=== PATIENT | male | born 1960 | race African-American/Black ===

== ENCOUNTER 2020-12-27 15:14 | Outpatient (CLI) | payer OTHER | END 2020-12-27 15:15 | disposition critical access hospital (66) | LOC: EMS 15:14 | PROVIDERS: ATTEND Emergency Medicine | DX: R10.31 Right lower quadrant pain (principal) | CPT/HCPCS: A0425; A0427 ==

== ENCOUNTER 2020-12-27 15:42 | Emergency (ER) | payer OTHER ==
--- NOTE | 2020-12-27 15:51 | ED Physician Documentation ---
PD HPI ABD PAIN - Stated complaint Stated Complaint: ABD PX - History obtained from History obtained from: Patient, EMS - Additional information Additional information: 60-year-old gentleman with some chronic digestive issues but also history of renal colic x2 presents with abrupt onset severe right-sided abdominal and flank pain starting about an hour ago after eating. He did get some relief after getting fentanyl on the way here. He denies nausea. The pain is reminiscent of prior renal colic. He never needed an intervention for that. He was noted to be quite hypertensive on the way here. Pain also radiates towards the groin. He declines pain medication on initial evaluation. Review of Systems Ten Systems: 10 systems reviewed and negative Constitutional: denies: Fever, Chills Nose: reports: Reviewed and negative Throat: reports: Reviewed and negative PD PAST MEDICAL HISTORY - Past Medical History Past Medical History: Yes GI: Other : Kidney stones - Present Medications Home Medications: Ambulatory Orders Medication Instructions Recorded Confirmed Atenolol [Tenormin] 25 mg PO DAILY 12/27/20 12/27/20 Doxycycline Hyclate [Doryx] 25 mg PO DAILY 12/27/20 12/27/20 Hydrochlorothiazide 25 mg PO DAILY 12/27/20 12/27/20 Ibuprofen [Motrin] 800 mg PO Q8H PRN #10 tablet 12/27/20 Oxycodone HCl/Acetaminophen 1 - 2 each PO Q6H PRN #14 tablet 12/27/20 [Percocet 5-325 mg Tablet] Simvastatin [Zocor] 40 mg PO DAILY 12/27/20 12/27/20 Tamsulosin [Flomax] 0.4 mg PO DAILY #14 cap 12/27/20 - Allergies Allergies/Adverse Reactions: Allergies Allergy/AdvReac Type Severity Reaction Status Date / Time No Known Drug Allergies Allergy Verified 12/27/20 16:14 - Living Situation Living Arrangement: reports: At home - Family History Family history: reports: Non contributory PD ED PE NORMAL - Vitals Vital signs reviewed: Yes - General General: Alert and oriented X 3, No acute distress - HEENT HEENT: PERRL, EOMI - Neck Neck: Supple, no meningeal sign, No bony TTP - Cardiac Cardiac: RRR, No murmur - Respiratory Respiratory: No respiratory distress, Clear bilaterally - Abdomen Abdomen: Soft, Other (Mild diffuse R abd TTP and mild R CVAT) - Derm Derm: Normal color, Warm and dry - Extremities Extremities: No edema, No calf tenderness / cord - Neuro Neuro: Alert and oriented X 3, Normal speech Results - Vitals Vitals: Vital Signs - 24 hr 12/27/20 12/27/20 12/27/20 15:43 16:15 16:53 Temperature 37 C Heart Rate 48 L 48 L 49 L Respiratory 16 18 22 Rate Blood Pressure 202/100 H 172/106 H 150/82 H O2 Saturation 96 98 12/27/20 12/27/20 12/27/20 17:03 17:42 18:27 Temperature Heart Rate 86 61 52 L Respiratory 16 16 Rate Blood Pressure 155/70 H 160/76 H 148/71 H O2 Saturation 94 98 Oxygen O2 Source Room air - Labs Labs: Laboratory Tests 12/27/20 12/27/20 12/27/20 16:00 16:00 16:45 WBC 5.7 RBC 4.52 L Hgb 14.3 Hct 41.9 L MCV 92.7 MCH 31.6 H MCHC 34.1 RDW 12.7 Plt Count 257 MPV 9.3 Neut # (Auto) 2.8 Lymph # (Auto) 2.2 [place] # (Auto) 0.6 Eos # (Auto) 0.1 Baso # (Auto) 0.0 Absolute Nucleated RBC 0.00 Nucleated RBC % 0.0 Sodium 137 Potassium 3.6 Chloride 99 L Carbon Dioxide 28 Anion Gap 10.0 BUN 21 H Creatinine 0.9 Estimated GFR (MDRD) 104 Glucose 107 H Calcium 9.7 Total Bilirubin 0.8 AST 25 ALT 29 Alkaline Phosphatase 75 Total Protein 7.3 Albumin 4.6 Globulin 2.7 Albumin/Globulin Ratio 1.7 Lipase 31 Urine Color YELLOW Urine Clarity HAZY Urine pH 6.0 Ur Specific [place] 1.025 Urine Protein NEGATIVE Urine Glucose (UA) NEGATIVE Urine Ketones NEGATIVE Urine Occult Blood LARGE H Urine Nitrite NEGATIVE Urine Bilirubin NEGATIVE Urine Urobilinogen 0.2 (NORMAL) Ur Leukocyte Esterase NEGATIVE Urine RBC 0-5 Urine WBC 0-3 Ur Squamous Epith Cells RARE Squamous Urine Bacteria Few Ur Microscopic Review INDICATED Urine Culture Comments NOT INDICATED - Rads (name of study) CT A/P Radiology: EMP read contemporaneously (Gastric distention, periportal edema in the liver, 1 mm right distal ureteral stone with mild hydronephrosis) PD MEDICAL DECISION MAKING - ED course ED course: 60-year-old gentleman presents with right-sided renal colic, small stone in the ureter was found on CT imaging. His pain was managed with medications here and counseled as to the diagnosis. Departure - Departure Disposition: 01 Home, Self Care Clinical Impression: Renal colic Condition: Stable Record reviewed to determine appropriate education?: Yes Instructions: ED Stone Renal W Colic Prescriptions: Tamsulosin [Flomax] 0.4 mg PO DAILY #14 cap Ibuprofen [Motrin] 800 mg PO Q8H PRN #10 tablet PRN Reason: PAIN &/OR FEVER Oxycodone HCl/Acetaminophen [Percocet 5-325 mg Tablet] 1 - 2 each PO Q6H PRN #14 tablet PRN Reason: pain Comments: Call your doctor to arrange a follow-up appointment, make the next available appointment. In the interim, return anytime if worse or if new symptoms develop. Discharge Date/Time: 12/27/20 18:39
[2020-12-27] MEDS ORDERED: KETOROLAC 30 MG/ML VIAL IVP STA (16:02)
[2020-12-27] MEDS ORDERED: HYDROmorphone 1 MG/ML CARPUJECT IVP STA ×2 (16:02→16:56)
[2020-12-27 16:06] LABS: BASOPHILS % (AUTO) 0.5 %; EOSINOPHILS # (AUTO) 0.1 10^3/uL (0.0-0.7); EOSINOPHILS % (AUTO) 1.9 %; HCT - HEMATOCRIT 41.9 % (42.0-52.0); HGB - HEMOGLOBIN 14.3 g/dL (14.0-18.0); LYMPHOCYTES # (AUTO) 2.2 10^3/uL (1.5-3.5); LYMPHOCYTES % (AUTO) 38.9 %; MEAN CORPUSCULAR HEMOGLOBIN 31.6 pg (27.0-31.0); MEAN CORPUSCULAR HGB CONC 34.1 g/dL (32.0-36.0); MEAN CORPUSCULAR VOLUME 92.7 fL (80.0-94.0); MEAN PLATELET VOLUME 9.3 fL (7.4-11.4); MONOCYTES # (AUTO) 0.6 10^3/uL (0.0-1.0); MONOCYTES % (AUTO) 10.2 %; NEUTROPHILS # (AUTO) 2.8 10^3/uL (1.5-6.6); NEUTROPHILS % (AUTO) 48.3 %; PLT - PLATELET COUNT 257 10^3/uL (130-450); RED BLOOD COUNT 4.52 10^6/uL (4.70-6.10); RED CELL DISTRIBUTION WIDTH 12.7 % (12.0-15.0); WHITE BLOOD COUNT 5.7 x10^3/uL (4.8-10.8)
[2020-12-27] MEDS ORDERED: IOVERSOL 320 100 ML VIAL IVP ONE ×2 (16:08→16:39)
[2020-12-27 16:18] LABS: ALBUMIN 4.6 g/dL (3.2-5.5); ALBUMIN/GLOBULIN RATIO 1.7 (1.0-2.2); BILIRUBIN,TOTAL 0.8 mg/dL (0.2-1.0); CALCIUM 9.7 mg/dL (8.5-10.3); CREATININE 0.9 mg/dL (0.6-1.2); POTASSIUM 3.6 mmol/L (3.5-5.0); TOTAL PROTEIN 7.3 g/dL (6.7-8.2)
[2020-12-27 16:55] LABS: BILIRUBIN,URINE NEGATIVE (NEGATIVE); GLUCOSE, URINE (UA) NEGATIVE (NEGATIVE); KETONES,URINE (UA) NEGATIVE (NEGATIVE); LEUKOCYTE ESTERASE, URINE NEGATIVE (NEGATIVE); NITRITE,URINE NEGATIVE (NEGATIVE); OCCULT BLOOD,URINE LARGE (NEGATIVE); PROTEIN,URINE NEGATIVE (NEGATIVE); UROBILINOGEN,URINE 0.2 (NORMAL) E.U./dL (NORMAL)
--- NOTE | 2020-12-27 16:55 | CT Report ---
PROCEDURE: Abdomen/Pelvis W INDICATIONS: R flank/abd pain, IV only CONTRAST: IV CONTRAST: Optiray 320 ml: 100 PO CONTRAST: *NO PO CONTRAST TECHNIQUE: After the administration of IV contrast, 5 mm thick sections acquired from the diaphragms to the symp hysis. 5 mm thick coronal and sagittal reformats were acquired. For radiation dose reduction, the f ollowing was used: automated exposure control, adjustment of mA and/or kV according to patient size. COMPARISON: None. FINDINGS: Image quality: Excellent. ABDOMEN: Lung bases: Lung bases are clear. Heart size is normal. Solid organs: Liver and spleen are normal in size and enhancement. There is periportal edema in the liver, a nonspecific finding. Gallbladder is distended with a thin wall. There is no fluid around the gallbladder. There is no inflammatory change around the gallbladder. Biliary system is non dilated. Pancreas enhances normally. No adrenal nodules. There is a 1 mm stone obstructing the distal right ureter at the level of the acetabulum, a short distance above the UV junction. Reference image 75/4 and image 33/7. This results in mild right hydroureter minimal right hydronephrosis, and a delayed ri ght nephrogram. Peritoneum and bowel: The stomach is distended. Bowel loops demonstrate normal wall thickness and caliber. No free fluid or air. Nodes and vessels: No retroperitoneal or mesenteric adenopathy by size criteria. Aorta and inferior vena cava are normal in size. Atherosclerotic calcifications involving the aorta and iliacs. Miscellaneous: No ventral hernias. PELVIS: Genitourinary: Bladder wall thickness is normal. Miscellaneous: No inguinal hernias or adenopathy. Bones: No suspicious bony lesions. No vertebral body compression fractures. IMPRESSION: 1. A 1 mm stone obstructs the distal right ureter just above the ureterovesical junction resulting in minimal right hydronephrosis and delayed right nephrogram. 2. Gastric distention. 3. Periportal edema in the liver, nonspecific finding. Reviewed by: Daniel Baldwin MD on 12/27/2020 3:54 PM [facility] Approved by: Daniel Baldwin MD on 12/27/2020 3:54 PM [place] Station ID: [id number]
[2020-12-27 16:58] LABS: CLARITY,URINE HAZY (CLEAR)
[2020-12-27 17:15] LABS: BACTERIA,URINE Few /HPF (None Seen); RBC,URINE 0-5 /HPF (0-5); SQUAMOUS EPITHELIAL CELL,UR RARE Squamous (<= Few); WBC,URINE 0-3 /HPF (0-3)
[2020-12-27] MEDS ORDERED: TAMSULOSIN 0.4 MG CAPSULE PO STA (17:21)
[2020-12-27] MEDS ORDERED: oxyCODONE/ACET 5/325 Prepack 4 PO STA (18:09)
[2020-12-27 18:28] VITALS: BP 148/71
[2020-12-27] MEDS ORDERED: HYDROmorphone 2 MG/ML VIAL IM STA (18:41)
== END 2020-12-27 18:39 | disposition home or self-care (01) ==
LOC: ED 15:42
DX: N13.2 Hydronephrosis with renal and ureteral calculous obstruction (principal)
CPT/HCPCS: 36415; 74177; 80053; 81001; 83690; 85025; 96374; 96375; 96376; 99284; A9270; J1170; Q9967; 81003; 87086; 87491; 87591; 87661

== ENCOUNTER 2020-12-28 10:15 | Outpatient (CLI) | payer OTHER | END 2020-12-28 10:16 | disposition critical access hospital (66) | LOC: EMS 10:15 | PROVIDERS: ATTEND Emergency Medicine | DX: R10.9 Unspecified abdominal pain (principal); R11.2 Nausea with vomiting, unspecified | CPT/HCPCS: A0425; A0427 ==

== ENCOUNTER 2020-12-28 10:42 | Emergency (ER) | payer OTHER ==
[2020-12-28] MEDS ORDERED: ONDANSETRON 4 MG/2 ML VIAL IVP STA (10:51)
[2020-12-28] MEDS ORDERED: SODIUM CHLORIDE 0.9% 1,000 ML IV STA (10:51)
[2020-12-28 11:26] LABS: BASOPHILS % (AUTO) 0.3 %; EOSINOPHILS % (AUTO) 0.3 %; HCT - HEMATOCRIT 41.8 % (42.0-52.0); HGB - HEMOGLOBIN 14.4 g/dL (14.0-18.0); LYMPHOCYTES # (AUTO) 1.3 10^3/uL (1.5-3.5); MEAN CORPUSCULAR HEMOGLOBIN 31.7 pg (27.0-31.0); MEAN CORPUSCULAR HGB CONC 34.4 g/dL (32.0-36.0); MEAN CORPUSCULAR VOLUME 92.1 fL (80.0-94.0); MEAN PLATELET VOLUME 9.1 fL (7.4-11.4); MONOCYTES # (AUTO) 0.7 10^3/uL (0.0-1.0); NEUTROPHILS # (AUTO) 7.1 10^3/uL (1.5-6.6); NEUTROPHILS % (AUTO) 77.2 %; PLT - PLATELET COUNT 253 10^3/uL (130-450); RED BLOOD COUNT 4.54 10^6/uL (4.70-6.10); RED CELL DISTRIBUTION WIDTH 12.8 % (12.0-15.0); WHITE BLOOD COUNT 9.1 x10^3/uL (4.8-10.8)
[2020-12-28] MEDS ORDERED: KETOROLAC 30 MG/ML VIAL IVP STA (11:39)
[2020-12-28] MEDS ORDERED: HYDROmorphone 0.5 MG/0.5 ML SYRINGE IVP STA (11:39)
[2020-12-28 11:40] LABS: ALBUMIN/GLOBULIN RATIO 1.5 (1.0-2.2); BILIRUBIN,TOTAL 0.8 mg/dL (0.2-1.0); CALCIUM 9.3 mg/dL (8.5-10.3); CREATININE 1.4 mg/dL (0.6-1.2); POTASSIUM 3.3 mmol/L (3.5-5.0); TOTAL PROTEIN 6.7 g/dL (6.7-8.2)
--- NOTE | 2020-12-28 12:26 | ED Physician Documentation ---
History of Present Illness - Stated complaint Stated Complaint: N/V - Chief complaint Chief Complaint: Abd Pain - History obtained from History obtained from: Patient - Additonal information Additional information: Patient returns emergency department after being seen yesterday and diagnosed with a kidney stone, for chief complaint of nausea vomiting and right flank pain overnight. Patient states that the pain is in about the same place it was yesterday. Review of his records reveals that he had a CT scan that revealed a 1 mm stone in his right ureter, but work-up was otherwise negative. The patient was discharged with oxycodone, which patient states is taken a little, though he is concerned about possible constipation, given his history of hemorrhoids and hemorrhoidectomy. He states that he vomited throughout the night and feels as though he got dehydrated. Patient states he had other kidney stones before, and that the symptoms seems to be lasting longer. He denies fevers or chills. No dysuria. No other complaints at this time. Review of Systems Ten Systems: 10 systems reviewed and negative Constitutional: reports: Reviewed and negative Eyes: reports: Reviewed and negative Ears: reports: Reviewed and negative Nose: reports: Reviewed and negative Throat: reports: Reviewed and negative Cardiac: reports: Reviewed and negative Respiratory: reports: Reviewed and negative GI: reports: Abdominal Pain, Nausea, Vomiting : reports: Reviewed and negative Skin: reports: Reviewed and negative Musculoskeletal: reports: Reviewed and negative Neurologic: reports: Reviewed and negative Psychiatric: reports: Reviewed and negative Endocrine: reports: Reviewed and negative Immunocompromised: reports: Reviewed and negative PD PAST MEDICAL HISTORY - Past Medical History Past Medical History: Yes Cardiovascular: Hypertension GI: Other : Kidney stones - Past Surgical History Past Surgical History: Yes - Present Medications Home Medications: Ambulatory Orders Medication Instructions Recorded Confirmed Atenolol [Tenormin] 25 mg PO DAILY 12/27/20 12/27/20 Doxycycline Hyclate [Doryx] 25 mg PO DAILY 12/27/20 12/27/20 Hydrochlorothiazide 25 mg PO DAILY 12/27/20 12/27/20 Ibuprofen [Motrin] 800 mg PO Q8H PRN #10 tablet 12/27/20 Oxycodone HCl/Acetaminophen 1 - 2 each PO Q6H PRN #14 tablet 12/27/20 [Percocet 5-325 mg Tablet] Simvastatin [Zocor] 40 mg PO DAILY 12/27/20 12/27/20 Tamsulosin [Flomax] 0.4 mg PO DAILY #14 cap 12/27/20 Ondansetron Odt [Zofran] 4 mg TL Q6H PRN #10 tablet 12/28/20 - Allergies Allergies/Adverse Reactions: Allergies Allergy/AdvReac Type Severity Reaction Status Date / Time No Known Drug Allergies Allergy Verified 12/27/20 16:14 - Social History Does the pt smoke?: No Smoking Status: Never smoker Does the pt drink ETOH?: Yes Does the pt have substance abuse?: Yes Substance Use and Type: Marijuana - Immunizations Immunizations are current?: Yes - POLST Patient has POLST: No PD ED PE NORMAL - Vitals Vital signs reviewed: Yes - General General: Alert and oriented X 3, No acute distress - HEENT HEENT: Atraumatic, PERRL, EOMI, Moist mucous membranes - Neck Neck: Supple, no meningeal sign - Cardiac Cardiac: RRR, No murmur, Strong equal pulses - Respiratory Respiratory: No respiratory distress, Clear bilaterally - Abdomen Abdomen: Soft, Non distended, Other (Moderate left flank tenderness, no rebound or guarding) - Derm Derm: Warm and dry - Extremities Extremities: No deformity - Neuro Neuro: Alert and oriented X 3 - Psych Psych: Normal mood, Normal affect Results - Vitals Vitals: Vital Signs - 24 hr 12/28/20 12/28/20 12/28/20 10:42 10:53 11:56 Temperature 37.0 C Heart Rate 53 L 57 L 53 L Respiratory 18 18 16 Rate Blood Pressure 143/120 H 145/97 H 161/83 H O2 Saturation 94 99 100 Oxygen O2 Source Room air - Labs Labs: Laboratory Tests 12/28/20 12/28/20 11:19 11:19 WBC 9.1 RBC 4.54 L Hgb 14.4 Hct 41.8 L MCV 92.1 MCH 31.7 H MCHC 34.4 RDW 12.8 Plt Count 253 MPV 9.1 Neut # (Auto) 7.1 H Lymph # (Auto) 1.3 L [place] # (Auto) 0.7 Eos # (Auto) 0.0 Baso # (Auto) 0.0 Absolute Nucleated RBC 0.00 Nucleated RBC % 0.0 Sodium 139 Potassium 3.3 L Chloride 98 L Carbon Dioxide 28 Anion Gap 13.0 BUN 22 H Creatinine 1.4 H Estimated GFR (MDRD) 62 L Glucose 119 H Calcium 9.3 Total Bilirubin 0.8 AST 23 ALT 25 Alkaline Phosphatase 62 Total Protein 6.7 Albumin 4.0 Globulin 2.7 Albumin/Globulin Ratio 1.5 Lipase 23 PD MEDICAL DECISION MAKING - ED course Complexity details: reviewed results, re-evaluated patient, considered differential, d/w patient ED course: The patient overall appeared fairly well, but seem to be still having symptoms, and as such, I did work him up with laboratory studies. Labs were unremarkable. The patient was given a liter of point and normal saline as well as a dose of Zofran. He requested that we minimize the likelihood of constipation from her treatments here in the ED, so I gave him a dose of Toradol and half a milligram of Dilaudid. This did seem to improve the patient's symptoms. I discussed with him that he does have a fairly small stone, though the stone may be angular and if it is attempting passage to the UVJ, but certainly cause some pain which would lead to nausea and vomiting. Work-up yesterday and today has not revealed any cause for further concern. The advised the patient to drink plenty of fluids and follow-up with his primary care physician and urology if needed. We have discussed the usual indications for return. Departure - Departure Disposition: 01 Home, Self Care Clinical Impression: Kidney stone on right side Vomiting Qualifiers: Vomiting type: bilious vomiting Nausea presence: with nausea Qualified Code(s): R11.14 - Bilious vomiting Condition: Stable Instructions: ED Nausea Vomiting, ED Stone Renal W Colic Prescriptions: Ondansetron Odt [Zofran] 4 mg TL Q6H PRN #10 tablet PRN Reason: Nausea / Vomiting Comments: Your labs look good today. Your kidney CT scan yesterday showed a kidney stone that is very close to passing into your bladder. The size of the stone is very passable and most likely, this will occur within the next couple of days at the latest. Please drink plenty of fluids to help encourage passage of the stone. You may take the pain medication you were prescribed yesterday although this will increase your likelihood of constipation. If you need pain control but want to minimize the constipation, you may try cutting a pill in half and see if this gives you enough relief without creating some much constipation. You may take the oral dissolving Zofran for nausea, as needed.
[2020-12-28 12:50] VITALS: BP 135/79
== END 2020-12-28 13:02 | disposition home or self-care (01) ==
LOC: EDUNIT# → ED 10:42
DX: N20.0 Calculus of kidney (principal); R11.2 Nausea with vomiting, unspecified; Z87.442 Personal history of urinary calculi
CPT/HCPCS: 36415; 80053; 83690; 85025; 96361; 96374; 96375; 99283; J1170

== ENCOUNTER 2021-02-21 11:44 | Emergency (ER) | payer OTHER ==
--- OUTSIDE RECORDS SUMMARY | 2021-02-21 11:47 | EXTERNAL MEDICAL SUMMARY RPT | Continuity of Care Document ---
:1960 Demographics Phone Unavailable Preferred Language Unknown Marital Status Unknown Taoist Affiliation Unknown Race Unknown Ethnic Group Unknown Author Organization [facility] Address [address] [place] [address] Phone Social History date description facility [phone]
--- OUTSIDE RECORDS SUMMARY | 2021-02-21 11:54 | EXTERNAL MEDICAL SUMMARY RPT | Continuity of Care Document ---
:1960 Demographics Phone Unavailable Preferred Language Unknown Marital Status Unknown Confucianism Affiliation Unknown Race Unknown Ethnic Group Unknown Author Organization [facility] Address [address] [place] [address] Phone Social History date description facility [phone]
[2021-02-21] MEDS ORDERED: KETOROLAC 60 MG/2 ML VIAL IM STA (13:04)
[2021-02-21] MEDS ORDERED: CHERRY SYRUP 10 ML UDC PO ONE (13:04)
[2021-02-21] MEDS ORDERED: DEXAMETHASONE 10 MG/ML VIAL PO STA (13:04)
--- NOTE | 2021-02-21 13:25 | ED Physician Documentation ---
PD HPI BACK PAIN - Stated complaint Stated Complaint: BODY PX - Chief complaint Chief Complaint: Ext Problem - History obtained from History obtained from: Patient - History of Present Illness Timing - onset: How many weeks ago (3) Timing - duration: Weeks (3) Timing - details: Gradual onset, Still present, Waxing and waning Location: Lower, Left Quality: Pain, Spasm, Sharp Associated symptoms: No: Fever, Weakness, Numbness, Incontinent of urine, Unable to urinate, Hematuria, Incontinent of stool Improves with: Rest, Position, Meds Worsened by: Movement Contributing factors: Other (over did it in the yard 3 weeks ago) Similar symptoms before: Diagnosis (cervical radiculopathy) Recently seen: Not recently seen - Additional information Additional information: 60-year-old male overdid it in his yard 3 weeks ago and developed some pain in his low back and this is now radiated to his left leg. He indicates that this has been going on for the past 3 weeks and today had an episode of pain that was so severe that he felt he was going to going to . He indicates he has pain going down the lateral aspect of his thigh across to the medial aspect and into his knee. He feels her maybe even some swelling to his knee for it feels like that. He denies any change in his bowel or bladder denies any numbness to his perineum he has not had fever. Review of Systems Constitutional: denies: Fever Nose: denies: Congestion Throat: denies: Sore throat Respiratory: denies: Cough GI: denies: Vomiting PD PAST MEDICAL HISTORY - Past Medical History Past Medical History: Yes Cardiovascular: Hypertension GI: Other : Kidney stones - Past Surgical History Past Surgical History: Yes - Present Medications Home Medications: Ambulatory Orders Medication Instructions Recorded Confirmed Atenolol [Tenormin] 25 mg PO DAILY 12/27/20 02/21/21 Doxycycline Hyclate [Doryx] 25 mg PO DAILY 12/27/20 02/21/21 Hydrochlorothiazide 25 mg PO DAILY 12/27/20 02/21/21 Simvastatin [Zocor] 40 mg PO DAILY 12/27/20 02/21/21 Cyclobenzaprine [Flexeril] 10 mg PO TID PRN #20 tablet 02/21/21 HYDROcod/ACETAM 5/325 [[place] 5/325] 1 - 2 tablet PO Q6H PRN #14 tablet 02/21/21 - Allergies Allergies/Adverse Reactions: Allergies Allergy/AdvReac Type Severity Reaction Status Date / Time No Known Drug Allergies Allergy Verified 02/21/21 12:03 - Social History Does the pt smoke?: No Smoking Status: Never smoker Does the pt drink ETOH?: Yes Does the pt have substance abuse?: Yes - Immunizations Immunizations are current?: Yes - POLST Patient has POLST: No PD ED PE NORMAL - Vitals Vital signs reviewed: Yes (Hypertensive mild) - General General: Alert and oriented X 3, No acute distress, Well developed/nourished - HEENT HEENT: Atraumatic, PERRL, EOMI - Respiratory Respiratory: No respiratory distress - Back Back: No CVA TTP, No spinal TTP, Other (There is paraspinous muscle spasm and tenderness more on the left than the right from the L1-L5 area. Pain extends into the sciatic notch) - Derm Derm: Normal color, Warm and dry, No rash - Extremities Extremities: No deformity, No edema - Neuro Neuro: Alert and oriented X 3, events specialist 2-12 intact, No motor deficit, No sensory deficit, Normal speech Eye Opening: Spontaneous Motor: Obeys Commands Verbal: Oriented GCS Score: 15 - Psych Psych: Normal mood, Normal affect Results - Vitals Vitals: Vital Signs - 24 hr 02/21/21 02/21/21 11:48 14:02 Temperature 36.3 C L Heart Rate 66 57 L Respiratory 18 16 Rate Blood Pressure 136/76 H 142/82 H O2 Saturation 100 97 Oxygen O2 Source Room air PD MEDICAL DECISION MAKING - ED course Complexity details: re-evaluated patient, considered differential, d/w patient ED course: 60-year-old male with acute sciatica is administered dexamethasone 10 mg and Toradol 60 mg IM we will place him on some [place] and Flexeril. The patient has had prior imaging recently within the past month demonstrating normal-appearing vasculature in the intra-abdominal area. The patient's history and examination are consistent with sciatica as a diagnosis. He is instructed on moderation in all health practices including alcohol intake cannabis intake length of time working. I have encouraged the patient adequately hydrated as well. Departure - Departure Disposition: 01 Home, Self Care Clinical Impression: Sciatica Qualifiers: Laterality: left Qualified Code(s): M54.32 - Sciatica, left side Condition: Stable Instructions: ED Sciatica Follow-Up: [facility] [Provider Group] Prescriptions: Cyclobenzaprine [Flexeril] 10 mg PO TID PRN #20 tablet PRN Reason: Spasms HYDROcod/ACETAM 5/325 [[place] 5/325] 1 - 2 tablet PO Q6H PRN #14 tablet PRN Reason: Pain Discharge Date/Time: 02/21/21 14:05
[2021-02-21 14:02] VITALS: BP 142/82
== END 2021-02-21 14:05 | disposition home or self-care (01) ==
LOC: ED 11:44
DX: M54.42 Lumbago with sciatica, left side (principal); I10 Essential (primary) hypertension
CPT/HCPCS: 96372; 99283; 99284; A9270

== ENCOUNTER 2021-02-22 08:00 | Outpatient (CLI) | payer OTHER ==
[2021-02-22 11:48] LABS: BASOPHILS % (AUTO) 0.2 %; EOSINOPHILS % (AUTO) 0.3 %; HCT - HEMATOCRIT 42.4 % (42.0-52.0); HGB - HEMOGLOBIN 14.6 g/dL (14.0-18.0); LYMPHOCYTES # (AUTO) 1.6 10^3/uL (1.5-3.5); LYMPHOCYTES % (AUTO) 14.2 %; MEAN CORPUSCULAR HEMOGLOBIN 31.6 pg (27.0-31.0); MEAN CORPUSCULAR HGB CONC 34.4 g/dL (32.0-36.0); MEAN CORPUSCULAR VOLUME 91.8 fL (80.0-94.0); MEAN PLATELET VOLUME 11.1 fL (7.4-11.4); MONOCYTES # (AUTO) 0.9 10^3/uL (0.0-1.0); MONOCYTES % (AUTO) 7.8 %; NEUTROPHILS # (AUTO) 8.8 10^3/uL (1.5-6.6); NEUTROPHILS % (AUTO) 77.1 %; PLT - PLATELET COUNT 253 10^3/uL (130-450); RED BLOOD COUNT 4.62 10^6/uL (4.70-6.10); RED CELL DISTRIBUTION WIDTH 12.8 % (12.0-15.0); WHITE BLOOD COUNT 11.4 x10^3/uL (4.8-10.8)
[2021-02-22 11:57] LABS: ALBUMIN 4.9 g/dL (3.2-5.5); ALBUMIN/GLOBULIN RATIO 1.8 (1.0-2.2); CALCIUM 10.6 mg/dL (8.5-10.3); CREATININE 0.8 mg/dL (0.6-1.2); TOTAL PROTEIN 7.6 g/dL (6.7-8.2)
== END 2021-02-22 23:59 | disposition home or self-care (01) ==
LOC: LAB.N 08:00
PROVIDERS: ATTEND Nurse Practitioner
DX: M79.606 Pain in leg, unspecified (principal); R10.9 Unspecified abdominal pain
CPT/HCPCS: 36415; 80053; 85025; 85379; 87086

== ENCOUNTER 2021-02-22 11:24 | Emergency (ER) | payer OTHER ==
--- OUTSIDE RECORDS SUMMARY | 2021-02-22 11:28 | EXTERNAL MEDICAL SUMMARY RPT | Continuity of Care Document ---
:1960 Demographics Phone Unavailable Preferred Language Unknown Marital Status Unknown Judaism Affiliation Unknown Race Unknown Ethnic Group Unknown Author Organization [facility] Address [address] [place] [phone] Phone Social History date description facility [phone]
--- OUTSIDE RECORDS SUMMARY | 2021-02-22 12:10 | EXTERNAL MEDICAL SUMMARY RPT | Continuity of Care Document ---
:1960 Demographics Phone Unavailable Preferred Language Unknown Marital Status Unknown Gnosticism Affiliation Unknown Race Unknown Ethnic Group Unknown Author Organization [facility] Address [address] [place] [address] Phone Social History date description facility [phone]
[2021-02-22] MEDS ORDERED: methocarbamoL 500 MG TABLET PO STA (12:23)
[2021-02-22 12:31] LABS: BILIRUBIN,URINE NEGATIVE (NEGATIVE); GLUCOSE, URINE (UA) NEGATIVE (NEGATIVE); KETONES,URINE (UA) NEGATIVE (NEGATIVE); LEUKOCYTE ESTERASE, URINE NEGATIVE (NEGATIVE); NITRITE,URINE NEGATIVE (NEGATIVE); OCCULT BLOOD,URINE TRACE-LYSE (NEGATIVE); PROTEIN,URINE NEGATIVE (NEGATIVE); UROBILINOGEN,URINE 0.2 (NORMAL) E.U./dL (NORMAL)
[2021-02-22 12:35] LABS: CLARITY,URINE CLEAR (CLEAR)
--- NOTE | 2021-02-22 12:39 | ED Physician Documentation ---
PD HPI BACK PAIN - Stated complaint Stated Complaint: FLANK PX - Chief complaint Chief Complaint: Back Pain - History obtained from History obtained from: Patient - History of Present Illness Timing - onset: How many weeks ago (3) Timing - duration: Weeks (3) Timing - details: Gradual onset Pain level max: 7 Location: Lower, Left Quality: Pain, Spasm, Similar to prior episodes Associated symptoms: No: Fever, Weakness, Numbness, Incontinent of urine, Unable to urinate, Hematuria, Incontinent of stool Improves with: Rest Worsened by: Movement Contributing factors: Other (started after doing yardwork a few weeks ago.). No: Trauma, Anticoagulated, Cancer, IVDA Similar symptoms before: Diagnosis (sciatica.) Recently seen: Emergency Dept (seen here yesterday for same, has not started his medication.) - Additional information Additional information: 60-year-old male presents to the emergency department stating that his left lower back is been hurting for the past several weeks after doing yard work. It radiates down the left leg and occasionally into the left calf. Worse with movement, better with rest. Seen here yesterday, normal laboratory testing at that time. He has not filled the prescriptions for pain medication and muscle relaxants yet. The patient went to the walk-in clinic today where he was seen and evaluated. He states that they were concerned about a possible kidney stone as he has had a kidney stone in the past. It was a 1 mm stone about 2 months ago. He states that this does not feel like that. No loss of bowel or bladder control. No leg swelling. No numbness or tingling. He states he is on doxycycline for chronic skin rashes and he is being worked up by his doctor for possible autoimmune disease causing pain in his joints. Review of Systems Ten Systems: 10 systems reviewed and negative Constitutional: denies: Fever, Chills Throat: denies: Sore throat Cardiac: denies: Chest pain / pressure Respiratory: denies: Cough GI: denies: Nausea, Vomiting, Diarrhea Skin: denies: Rash Musculoskeletal: denies: Neck pain Neurologic: denies: Focal weakness, Numbness, Headache PD PAST MEDICAL HISTORY - Past Medical History Past Medical History: Yes Cardiovascular: Hypertension GI: Other : Kidney stones - Past Surgical History Past Surgical History: Yes - Present Medications Home Medications: Ambulatory Orders Medication Instructions Recorded Confirmed Atenolol [Tenormin] 25 mg PO DAILY 12/27/20 02/22/21 Doxycycline Hyclate [Doryx] 25 mg PO DAILY 12/27/20 02/22/21 Hydrochlorothiazide 25 mg PO DAILY 12/27/20 02/22/21 Simvastatin [Zocor] 40 mg PO DAILY 12/27/20 02/22/21 Cyclobenzaprine [Flexeril] 10 mg PO TID PRN #20 tablet 02/21/21 02/22/21 HYDROcod/ACETAM 5/325 [[place] 5/325] 1 - 2 tablet PO Q6H PRN #14 tablet 02/21/21 02/22/21 Meloxicam [Mobic] 7.5 mg PO BID PRN #20 tablet 02/22/21 - Allergies Allergies/Adverse Reactions: Allergies Allergy/AdvReac Type Severity Reaction Status Date / Time No Known Drug Allergies Allergy Verified 02/22/21 11:35 - Social History Does the pt smoke?: No Smoking Status: Never smoker Does the pt drink ETOH?: Yes ETOH Use: Liquor Does the pt have substance abuse?: Yes Substance Use and Type: Marijuana - Immunizations Immunizations are current?: Yes - POLST Patient has POLST: No PD ED PE NORMAL - Vitals Vital signs reviewed: Yes - General General: Alert and oriented X 3, No acute distress, Well developed/nourished - HEENT HEENT: Atraumatic, PERRL, Moist mucous membranes - Neck Neck: Supple, no meningeal sign, No bony TTP - Cardiac Cardiac: RRR - Respiratory Respiratory: No respiratory distress, Clear bilaterally - Abdomen Abdomen: Soft, Non tender, Non distended - Back Back: No spinal TTP (No midline tenderness to palpation or percussion. No step- off or deformity. Paraspinal spasm left low lumbar, reproduces his pain.) - Derm Derm: Warm and dry - Extremities Extremities: No deformity, No tenderness to palpate, Normal ROM s pain, Other (Normal examination of the bilateral lower extremities. Full range of motion of all major joints without pain.) - Neuro Neuro: Alert and oriented X 3, Other (Normal bilateral lower extremity patellar and ankle jerk reflexes. Normal great toe extension bilaterally. no saddle anesthesia) - Psych Psych: Normal mood, Normal affect Results - Vitals Vitals: Vital Signs - 24 hr 02/22/21 02/22/21 02/22/21 11:33 12:28 12:53 Temperature 36.8 C Heart Rate 64 72 67 Respiratory 20 18 16 Rate Blood Pressure 131/100 H 148/97 H 124/67 O2 Saturation 99 94 98 Oxygen O2 Source Room air - Labs Labs: Laboratory Tests 02/22/21 11:45 Urine Color YELLOW Urine Clarity CLEAR Urine pH 7.0 Ur Specific [place] 1.020 Urine Protein NEGATIVE Urine Glucose (UA) NEGATIVE Urine Ketones NEGATIVE Urine Occult Blood TRACE-LYSE Urine Nitrite NEGATIVE Urine Bilirubin NEGATIVE Urine Urobilinogen 0.2 (NORMAL) Ur Leukocyte Esterase NEGATIVE Ur Microscopic Review NOT INDICATED Urine Culture Comments NOT INDICATED PD MEDICAL DECISION MAKING - ED course Complexity details: reviewed results, re-evaluated patient, considered differential, d/w patient ED course: Patient appears to have lumbar spine muscle spasm and sciatica. No evidence of cauda equina, epidural abscess, aortic dissection. Presentation not consistent with a ureteral stone. Had normal laboratory work yesterday and today except a mild leukocytosis after steroids were given yesterday. No fevers. No chills. Recommend that he start his medication as previously prescribed and follow-up closely with his doctor for further care. Patient counseled regarding signs and symptoms for which I believe and urgent re-evaluation would be necessary. Patient with good understanding of and agreement to plan and is comfortable going home at this time This document was made in part using voice recognition software. While efforts are made to proofread this document, sound alike and grammatical errors may occur. Departure - Departure Disposition: 01 Home, Self Care Clinical Impression: Sciatica Qualifiers: Laterality: left Qualified Code(s): M54.32 - Sciatica, left side Condition: Good Instructions: ED Sciatica Follow-Up: DARNELL HUBBARD PA-C [Primary Care Provider] - Within 1 week Prescriptions: Meloxicam [Mobic] 7.5 mg PO BID PRN #20 tablet PRN Reason: Pain Comments: Please start on the medications that were prescribed to you by Dr. Phan yesterday. We will see if this helps in the next 24 to 48 hours. You should follow-up with your doctor for further care. Return if you worsen. Discharge Date/Time: 02/22/21 13:18
[2021-02-22 12:54] VITALS: BP 124/67
== END 2021-02-22 13:18 | disposition home or self-care (01) ==
LOC: ED 11:24
DX: M54.42 Lumbago with sciatica, left side (principal); M62.830 Muscle spasm of back; I10 Essential (primary) hypertension; M79.606 Pain in leg, unspecified; R10.9 Unspecified abdominal pain; M51.36 Other intervertebral disc degeneration, lumbar region; M48.061 Spinal stenosis, lumbar region without neurogenic claudication; M51.37 Other intervertebral disc degeneration, lumbosacral region; M48.07 Spinal stenosis, lumbosacral region
CPT/HCPCS: 36415; 72100; 80053; 81003; 85025; 85379; 87086; 99283; 99284; A9270; 81001

== ENCOUNTER 2021-05-25 15:41 | Outpatient (CLI) | payer OTHER ==
[2021-05-25 17:41] LABS: CALCIUM, IONIZED 1.2 mmol/L (1.15-1.33); VBG PH 7.409 (7.31-7.41)
[2021-05-25 18:26] LABS: ALBUMIN 4.6 g/dL (3.2-5.5); ALBUMIN/GLOBULIN RATIO 1.6 (1.0-2.2); BILIRUBIN,TOTAL 0.7 mg/dL (0.2-1.0); CALCIUM 9.9 mg/dL (8.5-10.3); CREATININE 0.8 mg/dL (0.6-1.2); POTASSIUM 3.6 mmol/L (3.5-5.0); TOTAL PROTEIN 7.4 g/dL (6.7-8.2)
== END 2021-05-25 15:42 | disposition home or self-care (01) ==
LOC: LAB.N 15:41
PROVIDERS: ATTEND Internal Medicine
DX: E83.52 Hypercalcemia (principal)
CPT/HCPCS: 36415; 80053; 82330; 83970

== ENCOUNTER 2021-07-23 12:29 | Outpatient (CLI) | payer OTHER ==
--- NOTE | 2021-07-23 13:51 | XRAY Report ---
PROCEDURE: Knee 3 View LT INDICATIONS: LEFT KNEE PAIN TECHNIQUE: 3 views of the left knee(s) were acquired. COMPARISON: None. FINDINGS: Bones: No fractures or dislocations. No suspicious bony lesions. Soft tissues: No joint effusion. No suspicious soft tissue calcifications. IMPRESSION: Normal left knee Reviewed by: Solomon Aguero on 07/23/2021 1:50 PM PDT Approved by: Solomon Aguero on 07/23/2021 1:50 PM PDT Station ID: [id number]
== END 2021-07-23 12:30 | disposition home or self-care (01) ==
LOC: DI.N 12:29
PROVIDERS: ATTEND Internal Medicine
DX: M25.562 Pain in left knee (principal); Z79.899 Other long term (current) drug therapy; Z13.818 Encounter for screening for other digestive system disorders; R41.0 Disorientation, unspecified
CPT/HCPCS: 36415; 80053; 80074; 85025; 86592; 87389

== ENCOUNTER 2021-07-23 12:37 | Outpatient (CLI) | payer OTHER ==
[2021-07-23 17:49] LABS: BASOPHILS % (AUTO) 0.5 %; EOSINOPHILS # (AUTO) 0.1 10^3/uL (0.0-0.7); EOSINOPHILS % (AUTO) 2.2 %; HCT - HEMATOCRIT 42.8 % (42.0-52.0); HGB - HEMOGLOBIN 14.4 g/dL (14.0-18.0); LYMPHOCYTES # (AUTO) 1.6 10^3/uL (1.5-3.5); LYMPHOCYTES % (AUTO) 26.7 %; MEAN CORPUSCULAR HEMOGLOBIN 31.7 pg (27.0-31.0); MEAN CORPUSCULAR HGB CONC 33.6 g/dL (32.0-36.0); MEAN CORPUSCULAR VOLUME 94.3 fL (80.0-94.0); MONOCYTES # (AUTO) 0.5 10^3/uL (0.0-1.0); MONOCYTES % (AUTO) 8.8 %; NEUTROPHILS # (AUTO) 3.6 10^3/uL (1.5-6.6); NEUTROPHILS % (AUTO) 61.5 %; PLT - PLATELET COUNT 241 10^3/uL (130-450); RED BLOOD COUNT 4.54 10^6/uL (4.70-6.10); RED CELL DISTRIBUTION WIDTH 13.8 % (12.0-15.0); WHITE BLOOD COUNT 5.9 x10^3/uL (4.8-10.8)
[2021-07-23 18:18] LABS: ALBUMIN 4.6 g/dL (3.2-5.5); ALBUMIN/GLOBULIN RATIO 2.1 (1.0-2.2); BILIRUBIN,TOTAL 0.7 mg/dL (0.2-1.0); CALCIUM 9.3 mg/dL (8.5-10.3); CREATININE 0.6 mg/dL (0.6-1.2); POTASSIUM 3.7 mmol/L (3.5-5.0); TOTAL PROTEIN 6.8 g/dL (6.7-8.2)
[2021-07-24 13:17] LABS: HIV AG/AB 4TH GEN NON-REACTIVE (NON-REACTIVE)
[2021-07-24 14:36] LABS: HEPATITIS A IGM NON-REACTIVE (NON-REACTIVE); HEPATITIS B CORE ANTIBODY IGM NON-REACTIVE (NON-REACTIVE); HEPATITIS B SURFACE ANTIGEN NON-REACTIVE (NON-REACTIVE); HEPATITIS C ANTIBODY NON-REACTIVE (NON-REACTIVE)
== END 2021-07-23 12:38 | disposition home or self-care (01) ==
LOC: LAB.N 12:37
PROVIDERS: ATTEND Internal Medicine
DX: Z79.899 Other long term (current) drug therapy (principal); Z13.818 Encounter for screening for other digestive system disorders; R41.0 Disorientation, unspecified
CPT/HCPCS: 36415; 80053; 80074; 85025; 86592; 87389

== ENCOUNTER 2022-07-04 10:38 | Outpatient (CLI) | payer OTHER | END 2022-07-04 10:39 | disposition critical access hospital (66) | LOC: EMS 10:38 | DX: R45.89 Other symptoms and signs involving emotional state (principal); F41.9 Anxiety disorder, unspecified | CPT/HCPCS: A0425; A0429 ==

== ENCOUNTER 2022-07-04 11:04 | Emergency (ER) | payer OTHER ==
[2022-07-04 11:23] VITALS: BP 178/80
== END 2022-07-04 12:37 | disposition left against medical advice (07) ==
LOC: EDUNIT# → ED 11:04
DX: Z53.21 Procedure and treatment not carried out due to patient leaving prior to being seen by health care provider (principal)
CPT/HCPCS: 93005